=== PATIENT | female | born 1985 | race Caucasian/White ===

== ENCOUNTER 2021-12-30 07:59 | Outpatient (CLI) | payer BC ==
[2021-12-30] MEDS ORDERED: Iopamidol 370 76% 100 ML VIAL ONE (08:00)
== END 2021-12-30 08:00 | disposition home or self-care (01) ==
LOC: CSHCT 07:59
PROVIDERS: ATTEND Internal Medicine
DX: R10.9 Unspecified abdominal pain (principal); K22.89 Other specified disease of esophagus
CPT/HCPCS: 74177; Q9967